=== PATIENT | female | born 1970 | race Caucasian/White ===

== ENCOUNTER 2017-02-20 03:07 | Emergency (ER) | payer OTHER ==
[~2017-02-20] VITALS: Ht 160 cm; Wt 90.7 kg
[2017-02-20 03:10] VITALS: BP 167/82
[2017-02-20] MEDS ORDERED: POLYMYXIN B/TMP10 ML OPHTHALMIC (03:23)
== END 2017-02-20 04:00 | disposition home or self-care (01) ==
LOC: ER 03:07
DX: H10.33 Unspecified acute conjunctivitis, bilateral (principal); M32.9 Systemic lupus erythematosus, unspecified; Z98.890 Other specified postprocedural states; Z88.8 Allergy status to other drugs, medicaments and biological substances; F17.210 Nicotine dependence, cigarettes, uncomplicated